=== PATIENT | male | born 1995 | race Caucasian/White ===

== ENCOUNTER 2022-09-28 07:48 | Day surgery (SDC) | payer OTHER, BC, SELFPAY ==
[2022-09-28] VITALS (14 sets, daily range): BP systolic 113–131; BP diastolic 65–80; PULSE 50–65; RESP 14–16; TEMP 36.1–36.7; O2SAT 94–99; BMI 25.1
[2022-09-28] MEDS: SODIUM CHLORIDE 0.9 % (FLUSH) 10 ML SYRINGE IVF (08:30)
[2022-09-28] MEDS: LACTATED RINGERS 1000 ML 1,000 ML 100 ML IV (08:31)
[2022-09-28] MEDS: CEFAZOLIN 2 GM INJ IVP (09:10)
[2022-09-28] MEDS: BUPIVACAINE 0.25% 30 ML INJECTION (09:50)
--- NOTE | 2022-09-28 10:02 | P.GSOP_ITS ---
Operative Note Date of procedure: 09/28/22 Type of Procedure: Open umbilical hernia repair with placement of mesh Procedure Description: After discussing the risks and benefits of the procedure, the patient signed informed consent.? The operative site was marked and the patient was brought to the operating room and placed on the operating table in supine position.? Care was taken to pad the patient's pressure points.?? The patient was then intubated by anesthesia.?? The operative site was then prepped and draped in the usual sterile fashion.? A time-out was then performed. A curvilinear incision was made at the umbilicus over the previous well-healed incision. Dissection was carried down into the subcutaneous tissue using cautery. Dissection was taken down to the fascia, and the umbilical stock was carefully dissected off of the hernia sac. The previous hernia repair was palpated and appeared intact, just superior to this repair was a small fascial defect in weakness. The fascial edges were cleared circumferentially. The hernia was 1 cm in size, but because this was an area of weakness and known recurrence for the patient the decision was made to place mesh. The fascial defect was extended medial and lateral to accommodate a piece of mesh. A p reperitoneal pocket was created using a combination of blunt dissection and cautery. Hemostasis appeared adequate. Once the posterior fascia was clear, a piece of small Ventralex ST hernia mesh was placed in the preperitoneal space with care to ensure that it laid flat. This was secured into place using 2 0 PDS interrupted sutures. The tails were then trimmed and the fascial opening was closed with a running 0 Vicryl. Local anesthetic was injected into the fascia, skin and subcutaneous tissues. The umbilicus was reapproximated to the fascia. The skin was then closed with running absorbable suture. A sterile dressing was then applied. ? The patient was then woken and transported to the recovery area in stable condition. ? The patient tolerated the procedure well. Findings: Small fascial defect, repaired with placement of mesh. Anesthesia: GETA Surgeon: Viry Paula MD Estimated blood loss (mL): 5 Condition: stable Disposition: same day
--- NOTE | 2022-09-28 10:11 | W.ANESCHARGE ---
Anesthesia Charges Start Date/Time Anesthesia Start Date: 09/28/22 Anesthesia Start Time: 08:59 Stop Date/Time Anesthesia Stop Date: 09/28/22 Anesthesia Stop Time: 10:14 Summary Emergency: No
[2022-09-28] MEDS: fentaNYL 100 MCG/2 ML inj 50 MCG IVP (10:26)
[2022-09-28] MEDS: OXYCODONE 5 MG TABLET PO ×2 (11:00→11:45)
--- NOTE | 2022-09-28 11:17 | SUR.PHASEII ---
Medium abdominal binder placed on patient per verbal order Dr. Paula. Abdominal measurement 36. Patient to wear as much as possible for 2 weeks
--- NOTE | 2022-09-28 14:21 | W.ANESCHARGE ---
Anesthesia Charges Start Date/Time Anesthesia Start Date: 09/28/22 Anesthesia Start Time: 08:59 Stop Date/Time Anesthesia Stop Date: 09/28/22 Anesthesia Stop Time: 10:14 Summary Emergency: No
== END 2022-09-28 12:30 | disposition home or self-care (01) ==
PROVIDERS: PCP Family Medicine; Visit Provider Surgery
PROC: (CPT 49585; principal; 2022-09-28 08:45)
DX: K42.9 Umbilical hernia without obstruction or gangrene (principal)
CPT/HCPCS: 49585; 00830; A9270; C1781; J0690; J1100; J1885; J2250; J2405; J2704; J3010; J3490; J7120

== ENCOUNTER 2024-01-30 08:05 | Outpatient (CLI) | payer BC, SELFPAY | END 2024-01-30 08:06 | disposition home or self-care (01) | LOC: NFLDREF 02-12 20:45 | PROVIDERS: PCP Family Medicine; Referring Provider Family Medicine; Visit Provider Family Medicine | DX: Z13.1 Encounter for screening for diabetes mellitus (principal); Z13.220 Encounter for screening for lipoid disorders; R68.82 Decreased libido; Z31.41 Encounter for fertility testing | CPT/HCPCS: 80061; 82947; 84403; 89322 ==

== ENCOUNTER 2024-03-27 09:18 | Outpatient (REF) | payer BC, SELFPAY ==
--- OUTSIDE RECORDS SUMMARY | 2024-03-27 09:23 | XMS_ITS | Clinical Summary ---
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 Ok to fill with ventolin 8.5 g 1 11/30/2018 Active Active Problems Problem Noted Date Diagnosed Date Mild intermittent asthma with acute exacerbation 03/20/2016 Resolved Problems Problem Noted Date Diagnosed Date Resolved Date Abscess of tonsil 06/01/2011 07/30/2012 Immunizations Name Administration Dates Next Due AMB Influenza, IIV3 (Age >=3 years)(Flu Clinic Only) 09/16/2010 DTP 1993,1993,1993 DTP-HIB 06/01/1994 DTaP 06/29/1998 Hepatitis A (Peds) 06/30/2011,07/19/2010 Hepatitis B (Peds) 02/07/1999,08/04/1998, 998 Hib Conjugate, Unspecified 1993,1993 ,1993 Influenza A (H1N1), Inactiva fabian (Age >=3 Years) 10/08/2009 Influenza, IIV3 (Age >=3 years) 10/08/2007 MMR 06/29/1998,06/01/1994 Meningococcal Vaccine (Menveo) 07/14/2010 Oral Polio Vaccine 06/29/1998, 4,1993,05/09 Td (Age >=7 Years) 06/22/2005 Varicella Vaccine 07/19/2010,11/25/1996 Family History Medical History Relation Name Comments Heart Disease Father Hyperlipidemia Father Hypertension Father Other Father smoker Good Health Mother Relation Name Status Comments Father Mother Social History Tobacco Use Types Packs/Day Years Used Date Smoking Tobacco: Never Smokeless Tobacco: Never Tobacco Cessation:Counseling Given: Yes Alcohol Use Standard Drinks/Week Comments Not Currently 0 (1 standard drink = 0.6 oz pur e alcohol) PHQ-2 Answer Date Recorded PHQ-2 Score 0 01/26/2019 Social Connections Answer Date Recorded Frequency of Communication with Friends and Fami ly Not on file 11/26/2021 Financial Resource Strain Answer Date R ecorded Difficulty of Paying Living Expenses Not on file 11/26/2021 Difficulty of Paying Living Expenses Not on file 11/26/2021 Sex and Gender Information Value Date Recorded Sex Assigned at Not on file Gender Identity Not on file Sexual Orientation Not on file Obstetrics History Last Filed Vital Signs Vital Sign Reading Time Taken Comments Blood Pressure 124/76 09/25/2022 2:12 PM CDT Pulse 62 09/25/2022 2:12 PM CDT Temperature 37 ??C (98.6 ??F) 05/30/2022 2:13 PM CDT Respiratory Rate 16 05/12/2022 2:08 PM CDT Oxygen Saturation 99% 05/30/2022 2:13 PM CDT Inhaled Oxygen Concentration - - Weight 81.6 kg (180 lb) 09/25/2022 2:12 PM CDT Height 180.3 cm (5' 11) 11/30/2018 11:16 AM 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 Body Mass Index 25.1 11/30/2018 11:16 AM 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 Plan of Treatment Health Maintenance Due Date Last Done Comments Tdap 2004 HIV for age 15-65 2008 Hepatitis C screening for age 18-79 2011 Tetanus booster 06/22/2015 06/22/2005 Depression screening for age 12+ 05/01/2019 05/01/2018 BMI (ht and wt on same day) for age 18+ 11/30/2019 11/30/2018, 06/12/2018, 05/01/2018, Additional history exists COVID-19 vaccine series (2022-24 season) 2023 Influenza for age 9-49 07/27/2024 0, 10/08/2009, 10/08/2007 Pneumococcal series for age 6-64 Aged Out No longer eligible based on patient's age to complete this topic Advance Directives * Full Code (Latest Code Status on File) Date Activated Date Inactivated Comments 05/31/2011 1:28 AM 06/03/2011 5:12 PM Care Teams Cleaning Laborer Relationship Specialty Start Date End Date Taras King PCP - General 09/20/16
--- OUTSIDE RECORDS SUMMARY | 2024-03-27 09:23 | XMS_ITS | Continuity of Care Document ---
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 Name Role Phone Essie CAT, Ramon Unavailable Unavaila ble Allergies, Adverse Reactions, Alerts Substance Reaction Status Criticality No Known allergies Medications Medication Instructions Dosage Effective Dates (start - stop) Status Comments Nexium 40 mg Cap Take one capsule by mouth daily - Active Prilosec OTC Take one tablet by mouth daily - Active Nexium 40 mg Cap Take one capsule by mouth daily - No Longer Active Procedures Procedure Date Offic Cons New/estab Mod-hi 60 07 Advance Directives Directive Yes / No Effective Date File Name No Information Encounters Encounter Description Practice Location Reason(s) For Visit Diagnoses Date Provider Providers Copied on Encounter [facility], [address] [address], [place], [place], [id number], [place] tel:[phone] [facility] No Information Essie Navarro. [address] [facility], [facility] [address], [place], [place], [id number], [place]. tel:[phone] Offic Cons New/estab Mod-hi 60 [facility], [address] [address], [place], [place], [id number], [place] tel:[phone] [facility] Dyspepsia/ac id Peptic Disease No Information Referring Provider: Riky Trujillo, [address], [place], [address]. tel:[phone] Family History Family Member Type Diagnosis Age At Onset No Information Payers Payer name Insurance type Covered democrat ID Authoriza tijayden(s) [employer] [place] [id number] Social History Type Description Quantity Date Captured Comments Sex Male Smoking Status No Information Chief Complaint And Reason For Visit No Information Reason For Referral Reason For Referral No Information History Of Present Illness Encounter Date Complaint History Of Prese nt Illness No Information Functional Status Date Functional Assessmen t No Information Instructions Date Instruction Additional Infor mation No Information Assessments Type Assessment Date No Information Patient Care Teams Name Effective Dates (start - stop) Status Members No Information
[2024-03-28 17:06] LABS: Prolactin 7.3 ng/mL (2.1-17.7)
[2024-03-29 04:28] LABS: Luteinizing Hormone, Serum 6.4 IU/L (1.7-8.6)
== END 2024-03-27 09:19 | disposition home or self-care (01) ==
LOC: NPINS 09:18
PROVIDERS: PCP Family Medicine; Visit Provider Urology
DX: N46.01 Organic azoospermia (principal)
CPT/HCPCS: 83001; 83002; 84146; 89322